=== PATIENT | male | born 1970 | race Caucasian/White ===

== ENCOUNTER 2017-10-13 20:45 | Emergency (ER) | payer BC ==
[2017-10-13 20:54] VITALS: BP 111/72
[2017-10-13] MEDS ORDERED: Lidocaine 1%* 5 ML VIAL INJ ONE (21:03)
--- NOTE | 2017-10-13 21:12 | ED ---
Skin Complaint - HPI Summary HPI Summary: 47-year-old male presents with foreign body in left middle finger. He states that it happens yesterday. He was cleaning a metal blade and his hand slipped and hit a part and got a metal splinter. He has tried removing it with tweeze but has not been able to. He does not know when his last tetanus is. He has no medical conditions. No other injury. 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 Intensity: 3 - Allergy/Home Medications Allergies/Adverse Reactions: Allergies Allergy/AdvReac Type Severity Reaction Status Date / Time No Known Allergies Allergy Verified 10/13/17 20:54 PMH/Surg Hx/FS Hx/Imm Hx Endocrine/Hematology History: Denies: Hx Diabetes, Hx Thyroid Disease Cardiovascular History: Denies: Hx Hypertension Respiratory History: Denies: Hx Asthma, Hx Chronic Obstructive Pulmonary Disease (COPD) GI History: Denies: Hx Ulcer Infectious Disease History: No Infectious Disease History: Denies: Hx Hepatitis, Hx Human Immunodeficiency Virus (HIV), Traveled Outside the in Last 30 Days - Family History Known Family History: Positive: Hypertension - Social History Alcohol Use: Weekly Substance Use Type: Reports: None Smoking Status (MU): Never Smoked Tobacco Review of Systems Negative: Fever Negative: Chest Pain Negative: Shortness Of Breath Positive: Other - metal splinter All Other Systems Reviewed And Are Negative: Yes Physical Exam Triage Information Reviewed: Yes Vital Signs On Initial Exam: Initial Vitals Temp Pulse Resp BP Pulse Ox 97.9 F 58 18 111/72 100 10/13/17 20:51 10/13/17 20:51 10/13/17 20:51 10/13/17 20:51 10/13/17 20:51 Vital Signs Reviewed: Yes Appearance: Positive: Well-Appearing Skin: Positive: Warm, Dry, Other - metal splinter in left middle finger under nail Head/Face: Positive: Normal Head/Face Inspection Eyes: Positive: Normal, Conjunctiva Clear ENT: Positive: Pharynx normal Respiratory/Lung Sounds: Positive: Clear to Auscultation, Breath Sounds Present Cardiovascular: Positive: Normal, RRR Musculoskeletal: Positive: Normal Neurological: Positive: Normal Psychiatric: Positive: Normal Procedures - Procedure Summary Procedure Summary: splinter removal left middle finger performed digital block with lidocaine cleaned area with 20cc saline created window in nail and removed foreign body placed band aide on area Diagnostics - Vital Signs Vital Signs Temp Pulse Resp BP Pulse Ox 10/13/17 20:51 97.9 F 58 18 111/72 100 - Laboratory Lab Statement: Any lab studies that have been ordered have been reviewed, and results considered in the medical decision making process. Course/Dx - Course Course Of Treatment: 47-year-old male presents with foreign body in left middle finger. He states that it happens yesterday. He was cleaning a metal blade and his hand slipped and hit a part and got a metal splinter. He has tried removing it with tweeze but has not been able to. He does not know when his last tetanus is. He has no medical conditions. No other injury. On exam a small metal splinter on his left middle finger. performed digital block and created window in nail and removed nail partial and removed foreign body. will place on keflex. patient understand and agrees with plan. - Differential Diagnoses - Skin Complaint Differential Diagnoses: Cellulitis, Other - foriegn body - Diagnoses Provider Diagnoses: Splinter of finger Discharge - Sign-Out/Discharge Documenting (check all that apply): Patient Departure - Discharge Plan Condition: Good Disposition: HOME Prescriptions: Cephalexin CAP* [Keflex CAP*] 500 mg PO BID #10 cap Patient Education Materials: Soft Tissue Foreign Body (ED) Referrals: [facility] [Outside] Additional Instructions: keep area clean with soap and water take keflex twice a day for 5 days Return to if develop any new or worsening symptoms - Billing Disposition and Condition Condition: GOOD Disposition: Home
[2017-10-13] MEDS ORDERED: Tetan/Diph/Pertus SYR(Tdap)* 0.5 ML SYR(BOOSTRIX) use SYR IM ONE (21:16)
== END 2017-10-13 21:55 | disposition home or self-care (01) ==
LOC: UCEAST 20:45
DX: S60.453A Superficial foreign body of left middle finger, initial encounter (principal); W45.8XXA Other foreign body or object entering through skin, initial encounter; Y93.89 Activity, other specified; Y92.9 Unspecified place or not applicable
CPT/HCPCS: 10120; 11730; 90471; 90715; 99212; G0463

== ENCOUNTER 2019-03-18 16:28 | Emergency (ER) | payer BC ==
[2019-03-18 16:44] VITALS: BP 151/86
--- NOTE | 2019-03-18 17:19 | UC ---
Psychiatric Complaint HPI - HPI Summary HPI Summary: The patient is a 48-year-old male who was in [place] on business with his boss. On March 01 they went hiking. His boss had a a fatal heart attack during the hike. This obviously was quite upsetting to the patient. A few days after his boss the patient went on another hike. He felt extremely anxious during the hike and felt short winded. His symptoms disappeared when another hiker came along was able to talk to him as a walked up the hill. He states that about a week ago he lost his temper with his girlfriend over a text. After he lost his temper he felt anxious. Today he was feeling anxious and decided to go for a walk. His symptoms disappeared while walking. He comes in here today desiring an EKG. He is currently asymptomatic. During all of these episodes he has had no chest pain. - History Of Current Complaint Chief Complaint: UCGeneralIllness Stated Complaint: ANXIETY Time Seen by Provider: 03/18/19 16:34 Hx Obtained From: Patient Onset/Duration: Sudden Onset, Lasting Minutes Timing: Minutes Severity Initially: Mild Severity Currently: None Character: Anxious Aggravating Factor(s): Recent Stress Alleviating Factor(s): Other - talking to others/walking Recent Stressor(s): witnessed the of his boss who was also his good friend - Risk Factor(s) Completed Suicide Risk Factors: Male, White [place] - Allergies/Home Medications Allergies/Adverse Reactions: Allergies Allergy/AdvReac Type Severity Reaction Status Date / Time No Known Allergies Allergy Verified 03/18/19 16:40 Home Medications: Home Medications NK [No Home Medications Reported] 03/18/19 [History Confirmed 03/18/19] PMH/Surg Hx/FS Hx/Imm Hx Previously Healthy: Yes - Family History Known Family History: Positive: Hypertension Negative: Cardiac Disease, Diabetes - Social History Alcohol Use: Daily Substance Use Type: Marijuana Substance Use Comment - Amount & Last Used: occasionally Smoking Status (MU): Never Smoked Tobacco - Immunization History Most Recent Tetanus Shot: Unknown Review of Systems All Other Systems Reviewed And Are Negative: Yes Constitutional: Positive: Negative Skin: Positive: Negative Eyes: Positive: Negative ENT: Positive: Negative Respiratory: Positive: Negative Cardiovascular: Positive: Negative Gastrointestinal: Positive: Negative Genitourinary: Positive: Negative Motor: Positive: Negative Neurovascular: Positive: Negative Neurological: Positive: Negative Psychological: Positive: Anxious Physical Exam Triage Information Reviewed: Yes Appearance: Well-Appearing, No Pain Distress, Well-Nourished Vital Signs: Initial Vital Signs Temp 98.8 F 03/18/19 16:40 Pulse 64 03/18/19 16:40 Resp 18 03/18/19 16:40 BP 151/86 03/18/19 16:40 Pulse Ox 100 03/18/19 16:40 Vital Signs Reviewed: Yes Eyes: Positive: Conjunctiva Clear ENT: Positive: Hearing grossly normal. Negative: Nasal congestion, Nasal drainage, Trismus, Muffled voice, Hoarse voice Neck: Positive: Supple, Nontender, No Lymphadenopathy Respiratory: Positive: Lungs clear, Normal breath sounds, No respiratory distress, No accessory muscle use Cardiovascular: Positive: RRR, No Murmur Musculoskeletal: Positive: ROM Intact, No Edema Neurological: Positive: Alert Psychological Exam: Normal Skin Exam: Normal Diagnostics - EKG Cardiac Rate: NL Cardiac Rhythm: Sinus: Normal Ectopy: None ST Segment: Normal Psych Complaint Course/Dx - Differential Dx/Diagnosis Provider Diagnosis: Situational anxiety, Elevated BP without diagnosis of hypertension Discharge ED - Sign-Out/Discharge Documenting (check all that apply): Patient Departure All imaging exams completed and their final reports reviewed: No Studies - Discharge Plan Condition: Stable Disposition: HOME Patient Education Materials: Panic Attack (ED) Referrals: Meliton Francisco MD [Medical Doctor] - As Soon As Possible Additional Instructions: If you symptoms worsen or if you develop chest pain I suggest you go to the ER Call you primary and set up an appt Your BP here was 151/86 and needs follow up. - Billing Disposition and Condition Condition: STABLE Disposition: Home
== END 2019-03-18 17:26 | disposition home or self-care (01) ==
LOC: UCEAST 16:28
DX: F41.8 Other specified anxiety disorders (principal); R03.0 Elevated blood-pressure reading, without diagnosis of hypertension
CPT/HCPCS: 99211; G0463